=== PATIENT | female | born 1985 | race Two or more races ===

== ENCOUNTER 2022-06-01 14:18 | Emergency (ER) | payer OTHER, MEDICAID ==
[~2022-06-01] VITALS: Ht 162.6 cm; Wt 44.2 kg
[2022-06-01] MEDS ORDERED: CEPH-510 PO (20:26)
[2022-06-01] MEDS ORDERED: ACET-1158 PO (20:26)
[2022-06-01] MEDS ORDERED: TETANUS-DIPTH-ACEL PERTUSSIS 0.5ML SYR Tdap IM ONE (20:30)
[2022-06-01 21:41] VITALS: BP 101/76
== END 2022-06-02 06:31 | disposition home or self-care (01) ==
LOC: ER 14:18
DX: S61.512A Laceration without foreign body of left wrist, initial encounter (principal); F12.90 Cannabis use, unspecified, uncomplicated; W26.0XXA Contact with knife, initial encounter; Y93.89 Activity, other specified; Y92.89 Other specified places as the place of occurrence of the external cause; Y99.8 Other external cause status
CPT/HCPCS: 12002; 73130; 90715